=== PATIENT | female | born 1955 | race African-American/Black ===

== ENCOUNTER 2020-03-28 10:59 | Emergency (ER) | payer OTHER ==
[~2020-03-28] VITALS: Ht 157.5 cm; Wt 82.0 kg
[2020-03-28] MEDS ORDERED: ALBUTEROL (0.083%) 2.5MG/3ML NEB HHN STA (11:13)
[2020-03-28] MEDS ORDERED: METHYLPREDNISOLONE SOD SUCC 125 MG/2 ML VIAL IV STA (11:13)
[2020-03-28] MEDS ORDERED: IPRATROPIUM BROMIDE (0.02%) 0.5MG/2.5ML NEB HHN STA (11:13)
[2020-03-28 11:55] LABS: CHLORIDE 100 mEq/L (98-107)
[2020-03-28 12:18] LABS: BASOPHILS % 0.4 % (0.0-2.0); EOSINOPHILS % 2.5 % (0.0-5.0); HEMATOCRIT. 31.8 % (36.0-48.0); LYMPHOCYTES % 39.9 % (20.0-50.0); MEAN CORPUSCULAR HEMOGLOBIN 30.8 pg (28.0-32.0); MEAN CORPUSCULAR VOLUME 89.6 fL (81.0-99.0); MEAN PLATELET VOLUME 6.5 fl (7.4-10.4); MONOCYTES % 6.6 % (2.0-8.0); NEUTROPHILS % 50.6 % (40.0-76.0); PLATELET 186 x1000/uL (130-400); RED BLOOD CELL COUNT 3.55 mill/uL (4.2-5.4); RED CELL DISTRIBUTION WIDTH 15.4 % (11.6-14.6)
[2020-03-28 12:49] LABS: BG BASE EXCESS 7.4 mmol/L (-2.0-2.0); BG CARBOXYHEMOGLOBIN 0.3 % (0.5-1.5); BG DEOXYHEMOGLOBIN 1.3 % (0.0-5.0); BG FRACTION INSPIRED OXYGEN 32; BG HCO3 ACT 35.4 mmol/L (22.0-26.0); BG METHEMOGLOBIN 0.2 % (0.0-1.5); BG OXYGEN SATURATION 98.7 % (92.0-98.5); BG OXYHEMOGLOBIN 98.2 % (94.0-97.0); BG PH 7.354 (7.350-7.450); BG SAMPLE SITE LEFT RADIAL; BG TOTAL HEMOGLOBIN 14.4 g/dL (12.0-18.0); BG VENT MODE NASAL CANNULA
[2020-03-28 14:30] LABS: BG BASE EXCESS 3.5 mmol/L (-2.0-2.0); BG CARBOXYHEMOGLOBIN 0.1 % (0.5-1.5); BG DEOXYHEMOGLOBIN 3.2 % (0.0-5.0); BG FRACTION INSPIRED OXYGEN 28; BG HCO3 ACT 29.1 mmol/L (22.0-26.0); BG METHEMOGLOBIN 0.1 % (0.0-1.5); BG OXYGEN SATURATION 96.8 % (92.0-98.5); BG OXYHEMOGLOBIN 96.6 % (94.0-97.0); BG PCO2 48.4 mmHg (35.0-45.0); BG PH 7.397 (7.350-7.450); BG PO2 93.1 mmHg (75.0-100.0); BG SAMPLE SITE RIGHT RADIAL; BG TOTAL HEMOGLOBIN 11.8 g/dL (12.0-18.0); BG VENT MODE NASAL CANNULA
[2020-03-28 15:01] VITALS: BP 139/59
== END 2020-03-28 15:04 | disposition home or self-care (01) ==
LOC: ER 10:59
DX: J44.1 Chronic obstructive pulmonary disease with (acute) exacerbation (principal); I11.0 Hypertensive heart disease with heart failure; I50.9 Heart failure, unspecified; I69.354 Hemiplegia and hemiparesis following cerebral infarction affecting left non-dominant side; Z86.12 Personal history of poliomyelitis
CPT/HCPCS: 36415; 36600; 71045; 80053; 82375; 82805; 83880; 84484; 85025; 93005; 94644; 96374; 99285; J2930; Z7610

== ENCOUNTER 2020-05-14 16:12 | Emergency (ER) | payer OTHER ==
[~2020-05-14] VITALS: Ht 162.6 cm; Wt 77.0 kg
[2020-05-14] MEDS ORDERED: lisinopril (16:40)
[2020-05-14 17:40] LABS: BASOPHILS % 0.8 % (0.0-2.0); EOSINOPHILS % 3.2 % (0.0-5.0); HEMATOCRIT. 34.1 % (36.0-48.0); HEMOGLOBIN. 11.4 g/dL (12.0-16.0); LYMPHOCYTES % 26.9 % (20.0-50.0); MEAN CORPUSCULAR HEMOGLOBIN 29.7 pg (28.0-32.0); MEAN CORPUSCULAR VOLUME 88.9 fL (81.0-99.0); MEAN PLATELET VOLUME 6.9 fl (7.4-10.4); MONOCYTES % 7.9 % (2.0-8.0); NEUTROPHILS % 61.2 % (40.0-76.0); PLATELET 189 x1000/uL (130-400); RED BLOOD CELL COUNT 3.84 mill/uL (4.2-5.4); RED CELL DISTRIBUTION WIDTH 14.5 % (11.6-14.6)
[2020-05-14 17:48] LABS: CHLORIDE 103 mEq/L (98-107)
[2020-05-14] MEDS ORDERED: ONDANSETRON HCL 4MG/2ML INJ IV STA (18:53)
[2020-05-14] MEDS ORDERED: MORPHINE SULFATE 4 MG/ML CPJ (NOT FOR IM USE) IV STA (18:53)
[2020-05-14] MEDS ORDERED: VANCOMYCIN 1 G PREMIX 200 ML IV ONE (19:00)
[2020-05-14] MEDS ORDERED: PIPERACILLIN/TAZ 3.375G PREMIX 50 ML IV ONE (19:00)
[2020-05-14] MEDS ORDERED: POTASSIUM CHLORIDE 20MEQ TABLET SR PO ONE (19:00)
[2020-05-14] MEDS ORDERED: ALBUTEROL 6.7GM HFA INHALER ORI ONE (21:00)
[2020-05-14 21:18] LABS: COLOR URINE YELLOW (YELLOW); KETONES URINE NEGATIVE (NEGATIVE); LEUKOCYTE ESTERASE URINE NEGATIVE (NEGATIVE); NITRITE URINE NEGATIVE (NEGATIVE); OCCULT BLOOD URINE TRACE (NEGATIVE); PH URINE 5.5 (4.5-8.0); PROTEIN URINE 1+ (NEGATIVE); SPECIFIC GRAVITY URINE 1.048 (1.005-1.030)
[2020-05-14] MEDS ORDERED: IPRATROPIUM BROMIDE (0.02%) 0.5MG/2.5ML NEB HHN STA (21:24)
[2020-05-14] MEDS ORDERED: ALBUTEROL (0.083%) 2.5MG/3ML NEB HHN STA (21:24)
[2020-05-14] MEDS ORDERED: METHYLPREDNISOLONE SOD SUCC 125 MG/2 ML VIAL IV STA (21:24)
[2020-05-14 21:28] LABS: CLARITY URINE HAZY (CLEAR)
[2020-05-14] MEDS ORDERED: ENOXAPARIN 80MG/0.8ML SYR SUBCUT ONE (23:00)
[2020-05-15] MEDS ORDERED: IOHEXOL-350 100 ML BOTTLE ONE (01:37)
[2020-05-15 02:10] VITALS: BP 124/64
== END 2020-05-15 02:38 | disposition short-term general hospital (02) ==
LOC: ER 16:12 → EDBEDREQ 05-15 00:57 → EDBEDREQDT 05-15 00:57 → EDBEDREQTM 05-15 00:57 → ER 05-15 02:38 → CANBEDREQ 05-15 04:33
DX: R60.9 Edema, unspecified (principal); E87.6 Hypokalemia; I82.493 Acute embolism and thrombosis of other specified deep vein of lower extremity, bilateral; J44.1 Chronic obstructive pulmonary disease with (acute) exacerbation; N39.0 Urinary tract infection, site not specified; I10 Essential (primary) hypertension
CPT/HCPCS: 36415; 71045; 71275; 80053; 81003; 83605; 83880; 84484; 85025; 87040; 87086; 93005; 93970; 93971; 94644; 96365; 96366; 96368; 96372; 96375; 99285; J1650; J2270; J2405; J2543; J2930; J3370; Q9967; Z7610